=== PATIENT | male | born 1935 | race Caucasian/White ===

== ENCOUNTER → 2016-12-10 | Outpatient (CLI) | payer MEDICARE | LOC: LAB 06:06 | PROVIDERS: Internal Medicine | DX: E11.9 Type 2 diabetes mellitus without complications (principal) | CPT/HCPCS: 36415; 80053; 83036 ==

== ENCOUNTER → 2020-12-30 | Outpatient (CLI) | payer MEDICARE ==
[2020-12-30 08:16] LABS: HEMOGLOBIN 14.9 gm/dl (14.0-17.5); RED BLOOD COUNT 4.79 M/UL (4.20-5.50)
[2020-12-31 11:15] LABS: CREATININE, URINE 154.5 mg/dL (Not Estab.)
== END ==
LOC: LAB 07:13
PROVIDERS: Internal Medicine
DX: E11.65 Type 2 diabetes mellitus with hyperglycemia (principal); E78.5 Hyperlipidemia, unspecified; R53.83 Other fatigue; E55.9 Vitamin D deficiency, unspecified
CPT/HCPCS: 36415; 80053; 80061; 82043; 82570; 83036; 84443; 85025

== ENCOUNTER → 2021-03-31 | Outpatient (CLI) | payer MEDICARE ==
[~2021-03-31] MED LIST: ADULT LOW DOSE81 MG PO; COQ-10100 MG PO; HYDRALAZINE HCL25 MG PO; JANUVIA50 MG PO; LASIX TAB 20 MG20 MG PO; NORVASC10 MG PO; RYBELSUS14 MG PO; TOPROL XL50 MG PO; TOUJEO MAX300 UNIT/1 SQ; VITAMIN B 12 PO; VITAMIN D3; ZETIA10 MG PO; [UNRECOGNIZED DRUG - REMARK] PO
== END ==
LOC: LAB 14:27
PROVIDERS: Nurse Practitioner Family
DX: Z53.9 Procedure and treatment not carried out, unspecified reason (principal)
CPT/HCPCS: 36415; 80048; 80053

== ENCOUNTER → 2021-04-06 | Outpatient (CLI) | payer MEDICARE | LOC: MRI 14:07 → EMI 04-13 15:00 | DX: R22.32 Localized swelling, mass and lump, left upper limb (principal); S44 Injury of nerves at shoulder and upper arm level; M79.9 Soft tissue disorder, unspecified | CPT/HCPCS: 73220; A9577 ==

== ENCOUNTER → 2021-04-16 | Outpatient (CLI) | payer MEDICARE ==
[2021-04-16 08:46] LABS: HEMOGLOBIN 14.6 gm/dl (14.0-17.5); RED BLOOD COUNT 4.73 M/UL (4.20-5.50); WHITE BLOOD COUNT 6.8 K/UL (4.5-11.0)
== END ==
LOC: OPSV2 08:00
PROVIDERS: Orthopaedic Surgery
DX: Z01.818 Encounter for other preprocedural examination (principal); R22.31 Localized swelling, mass and lump, right upper limb; R94.31 Abnormal electrocardiogram [ECG] [EKG]; I44.0 Atrioventricular block, first degree; I49.3 Ventricular premature depolarization
CPT/HCPCS: 71046; 80048; 85027; 93005

== ENCOUNTER → 2021-04-29 | Day surgery (SDC) | payer MEDICARE ==
[~2021-04-29] VITALS: Ht 154.9 cm; Wt 94.3 kg
== END | disposition home or self-care (01) ==
LOC: OR 05:27
PROVIDERS: Orthopaedic Surgery
PROC: 0JBG0ZZ Excision of Right Lower Arm Subcutaneous Tissue and Fascia, Open Approach (ICD-10-PCS; principal; 2021-04-29 07:30)
DX: C49.11 Malignant neoplasm of connective and soft tissue of right upper limb, including shoulder (principal); I13.10 Hypertensive heart and chronic kidney disease without heart failure, with stage 1 through stage 4 chronic kidney disease, or unspecified chronic kidney disease; E11.22 Type 2 diabetes mellitus with diabetic chronic kidney disease; N18.9 Chronic kidney disease, unspecified; E78.5 Hyperlipidemia, unspecified; I25.2 Old myocardial infarction; I25.10 Atherosclerotic heart disease of native coronary artery without angina pectoris; I49.9 Cardiac arrhythmia, unspecified; G47.33 Obstructive sleep apnea (adult) (pediatric); E11.40 Type 2 diabetes mellitus with diabetic neuropathy, unspecified; N40.0 Benign prostatic hyperplasia without lower urinary tract symptoms; Z20.822 Contact with and (suspected) exposure to COVID-19; Z79.4 Long term (current) use of insulin; Z79.82 Long term (current) use of aspirin; Z79.899 Other long term (current) drug therapy; Z85.820 Personal history of malignant melanoma of skin
CPT/HCPCS: 82962; J0690; J1100; J2001; J2405; J2704; J7030; J7120; U0002